=== PATIENT | female | born 1930 | race Caucasian/White ===

== ENCOUNTER 2016-11-29 03:48 | Inpatient (IN) | payer OTHER ==
--- NOTE | 2016-11-29 04:17 | EDPRACDOC ---
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 Mode Of Arrival: Ambulance Home Medications: Home Medications Atorvastatin [Lipitor 40 mg Tablet] 80 mg PO QHS 02/06/15 Carvedilol [Coreg] 6.25 mg PO BID 02/06/15 Clopidogrel Bisulfate [Plavix] 75 mg PO DAILY 02/06/15 Cyanocobalamin (Vitamin B-12) [Vitamin B-12] 500 mcg PO DAILY 02/06/15 Folic Acid 0.8 mg PO DAILY 02/06/15 Furosemide [Lasix] 60 mg PO DAILY 02/06/15 Gabapentin [Neurontin] 300 mg PO QAM 02/06/15 Vitamins, Multiple [Unicap] 1 cap PO DAILY 02/06/15 Citalopram (anti-depressant) [Celexa] 40 mg PO DAILY 04/17/15 Calcium Carbonate/Vitamin D3 [Calcium + Vit D Caplet (600mg/400IU)] 1 tab PO BID 11/29/15 Pantoprazole Sodium [Protonix] 40 mg PO QAM 11/29/15 Beta-Carotene(A) W-C & E/Min [Ocuvite Tablet (1000IU/200mg/60IU)] 2 tab PO DAILY 08/29/16 Gabapentin 600 mg PO QHS 08/29/16 Ubidecarenone [Coq-10] 100 mg PO BID 08/29/16 Allergies/Adverse Reactions: Allergies Allergy/AdvReac Type Severity Reaction Status Date / Time adhesive tape Allergy Unknown/See Verified 11/29/15 11:34 Comments STERI STRIPS Allergy Blisters Uncoded 11/29/15 11:34 - History of Present Illness Onset: 0300 HPI: ABRUPT ONSET OF SHORTNESS OF BREATH. PT WAS AT BASELINE WHEN SHE WENT TO BED. Shortness of Breath: Severe Cough: Reports: Non-productive Rhinorrhea: Reports: Clear SOB Worsens with: Reports: Nothing SOB Improves with: Reports: Nothing Associated Signs and symptoms: Reports: Nasal Symptoms Other History: SHOB RAPIDLY PROGRESSING, "IM TIRED" PT UNABLE TO PROVIDE MUCH INFORMATION. ED Past Medical History - History Reviewed Yes Nurses notes reviewed and agree except as marked Information Unobtainable: Yes Unable to obtain information due to patient condition (ALL INFO FROM DAUGHTER AND MED RECORDS) - Patient Medical History Cardiac History: Reports: Hypertension, Congestive Heart Failure, Hypercholesterolemia Psychological History: Denies: Depression Systemic History: Reports: Cancer (LEFT BREAST CERVICAL LYMPHOMA SKIN CANCER) , Diabetes (controlled with diet) - Social Medical History Smoking Status: Never smoker - Physical Exam Constitutional: Alert, Confused, Distress, Restless. negative: Well nourished, Well appearing Oriented to: Person Last recorded Vital Signs: Oxygen Pulse Oxygen Saturation O2 Device Oxygen Flow Rate Fraction of Inspired Oxygen ( FIO2) - HEENT Head: Normal Oropharynx: Normal Neck: Normal. negative: Edema, Limited ROM, Lymphadenopathy, Meningeal Signs - Respiratory/Cardiovascular Respiratory: Accessory Muscle Use, Rales, Rhonchi, Tachypnea Cardiovascular: Tachycardia - GI Auscultation: Normal Palpation: Normal Tenderness: Non tender - Musculoskeletal Back: Normal. negative: CVA Tenderness Extremities: negative: Pedal Edema - Integumentary Skin: Cool, Clammy - Neurologic Memory Impaired: Short-term, Long-term Motor Function: Other (MOVES ALL EXT) Mood Description: Anxious ED SOB MDM - Re-evaluation Re-evaluation 1 Re-evaluation Time: 04:29 (IMPROVED ON BIPAP) Re-evaluation 3 Re-evaluation Time: 04:58 (SBP 149, PT MUCH IMPROVED, STILL ON BIPAP) - Results Result Diagrams: 11/29/16 04:16 11/29/16 04:16 - EKG EKG #1 EKG Time: 03:59 -: Yes EKG interpreted by me Rate: bpm: 116 [place]: Normal Rhythm: Paced Block: None (WIDE COMPLEX) Hypertrophy: None ST: Nonsp EKG #3 EKG Time: 04:58 ED Critical Care Note - Critical Care Note Total Time (mins): 35 Comments: Due to the presence of and / or the risk of deterioration, my attendance to this patient required critical care time, including assessment/reassessment, documentation, ordering and interpreting ancillary studies, discussion with ED staff and consultants,patient and family, and excludes time spent on separately billable procedures. - Departure Disposition: Admit IP To This Hospital Final Diagnosis: Hypertensive emergency, Pulmonary edema cardiac cause Instructions: Chronic Hypertension (ED) Referrals: None,No Provider [Primary Care Provider] - One Week Decision to Admit Time: 04:59 Decision to admit date: 11/29/16 Decision to admit: from ED - Physician Consulted Hospitalist Time Called: 04:59 Provider Called: Nicanor Whitaker Time Patient Registration Supervisor Returned Call: 04:59
[2016-11-29] MEDS ORDERED: FUROSEMIDE 40 MG/4 ML VIAL IV ONE (04:27)
[2016-11-29] MEDS ORDERED: Nitroglycerin D5W 50,000 MCG/250 ML IVBOT IV ONE (04:32)
[2016-11-29 04:33] LABS: AUTOMATED BASOPHIL 0.7 % (0-2); AUTOMATED LYMPH 31.3 % (17-44); AUTOMATED MONOCYTE 8.4 % (3-10); AUTOMATED NEUTROPHIL 57.6 % (45-76); MPV 9.6 fL (7.4-10.4)
[2016-11-29 04:38] LABS: ALLEN'S TEST PASS; BEb 7.6 (+/- 2); TCO2 36.2 MMOL/L (23-27)
[2016-11-29 04:39] LABS: ABG Draw Site Right Brachial
[2016-11-29 04:40] LABS: PARTIAL THROMB. TIME 34.7 SEC (22-35); PT-INR 1.1
[2016-11-29 04:43] LABS: BLOOD UREA NITROGEN 27 MG/DL (7-17); CALCIUM 10.1 MG/DL (8.4-10.2); CALCULATED OSMOLALITY 279 MOs/Kg (270-290); CHLORIDE 92 mEq/L (98-107); CPK TOTAL WITH POSSIBLE MB 39 IU/L (30-134); GLUCOSE 250 MG/DL (70-99); SODIUM LEVEL 138 mEq/L (137-146); TOTAL PROTEIN 7.9 G/DL (6.3-8.2)
--- NOTE | 2016-11-29 04:48 | DIRPT ---
CLINICAL DATA: Acute onset of sepsis. Breathing difficulty. Initial encounter. EXAM: PORTABLE CHEST 1 VIEW COMPARISON: Chest radiograph performed 11/08/2016 FINDINGS: The lungs are well-aerated. Vascular congestion is noted. Increased interstitial markings raise concern for mild interstitial edema, though pneumonia might have a similar appearance, given the patient's presentation. There is no evidence of pleural effusion or pneumothorax. The cardiomediastinal silhouette is borderline normal in size. A pacemaker/AICD is noted overlying the left chest wall, with leads ending overlying the right atrium, right ventricle and coronary sinus. No acute osseous abnormalities are seen. IMPRESSION: Vascular congestion noted. Increased interstitial markings raise concern for mild interstitial edema, though pneumonia might have a similar appearance, given the patient's presentation. Electronically Signed By: Joselito Stauffer M.D. On: 11/29/2016 04:45
[2016-11-29] MEDS ORDERED: Nitroglycerin D5W 50,000 MCG/250 ML IVBOT IV SCH ×2 (05:00→07:00)
--- NOTE | 2016-11-29 05:48 | HISTPHYS ---
- Chief Complaint shortness of breath - History of Present Illness PRIMARY CARE PROVIDER: Dr. Angela Ames HEME/ONC: Dr. Durham HPI: The patient is an 86 yo woman with congestive heart failure (EF 30-35% on 2012 echocardiogram), history of lymphoma and breast cancer, chronic lung disease thought secondary to cancer treatment, who presents with acute shortness of breath. She reports she started having a cough with some shortness of breath about 10 days ago; she went to her primary care doctor's office, was started on a Z pack and prednisone taper, and was found to be hypoxic enough to qualify for home oxygen. She has been using the home oxygen of 2L at night over the last week. She had some shortness of breath when she went to bed last night but it was not severe. She woke up suddenly at around 3 AM with severe shortness of breath, and just could not breathe at all. She was transported to the emergency department. Onset: over 1 week ago but became very severe at 3 am today. Duration: intermittent at first, and now constant. Character: could not get a good breath. Alleviated by: Nothing. Exacerbated by: lying flat and exertion. Associated Symptoms: Coughing that is non-productive. Wheezing. Shortness of breath. No chest pain but does have palpitations. Diaphoresis. No change in weight. No lower extremity edema. Treatments: none at home except usual medications. - Medical History Cardiac History: Reports: Hypertension, Congestive Heart Failure (2012 ECHO: EF 30-35%. ant hypokiesis. Diastolic dys. Mild-Mod MR.), Hypercholesterolemia, Internal Defibrillator, Pacemaker (replaced 11/28/2015 at [place]), Other ( Left carotid endarterectomy.) Respiratory History: Reports: Other (Chronic lung disease due to cancer treatment per patient.) Systemic History: Reports: Cancer (LYMPHOMA, LEFT BREAST, CERVICAL, MELANOMA), Anemia (Receives injections), Diabetes (controlled with diet, Type 2. With peripheral neuropathy.) Neurological History: Reports: Cerebrovascular Accident (mild, 08/2016. Caused visual field deficits.) Psychological History: Denies: Depression 07/16/2012 ECHOCARDIOGRAM: Ejection fraction 30-35% Anterior wall hypokinesis. Relaxation abnormality. Mild to moderate mitral regurgitation. Trace tricuspid regurgitation. Normal pulmonary artery pressure. - Surgical History Reports: Other (L lumpectomy. Polyps removed nose/sinuses. L-CEA. Pacemaker. Melanoma.) - Medictions/Allergies Allergies adhesive tape Allergy (Verified 11/29/16 05:21) Unknown/See Comments BLISTERS WITH STERI STRIPS STERI STRIPS Allergy (Uncoded 11/29/16 05:21) Blisters Current Medication List: Reviewed Home Medications Atorvastatin Calcium 40 mg PO HS 11/29/16 Calcium Carbonate/Vitamin D3 [Calcium + Vit D Tablet (600mg/200IU)] 1 tab PO BID 11/29/16 Carvedilol 3.125 mg PO BID 11/29/16 Citalopram (anti-depressant) [Celexa] 40 mg PO DAILY 11/29/16 Clopidogrel Bisulfate [Plavix] 75 mg PO DAILY 11/29/16 Cyanocobalamin (Vitamin B-12) [Vitamin B-12] 500 mcg PO HS 11/29/16 Folic Acid 1 mg PO DAILY 11/29/16 Furosemide 20 mg PO .PRN PRN 11/29/16 Furosemide 20 mg PO TID 11/29/16 Gabapentin 300 mg PO TID 11/29/16 Loratadine [Alavert] 10 mg PO DAILY 11/29/16 Multivitamin [Multivitamins] 1 each PO DAILY 11/29/16 Mv-Mn/FA/Vit K/Lycop/Lut/Zeaxa [Ocuvite Eye + Multi Tablet] 1 each PO BID [place]-3 Fatty Acids/Fish Oil [Fish Oil 1,000 mg Capsule] 1 each PO BID 11/29/16 Pantoprazole Sodium 40 mg PO DAILY 11/29/16 Potassium Chloride 10 meq PO BID 11/29/16 Ubidecarenone [Co Q-10] 200 mg PO BID 11/29/16 - Family History Reports: Hypertension (Mother), Cancer (Mother: breast cancer. Father: lung cancer (smoker).), Cardiac Disorders ([employer]: [place].) - Social History Smoking Status: Never smoker Social History: Denies: Alcohol Use, Substance Use Disorder - Review of Systems GENERAL: No Fever, chills. Diaphoresis and fatigue/malaise. HEENT: No ear pain or discharge. No nasal discharge or bleeding. No throat pain or swelling. No eye pain or eye redness. RESPIRATORY: Coughing that is non-productive. Wheezing. Shortness of breath. CARDIOVASCULAR: No chest pain but does have palpitations. GI: Chronic constipation. No abdominal pain, nausea, vomiting, diarrhea, or bloody stool. NEUROLOGICAL: No headache or focal weakness. INTEGUMENT: no rashes, itching, or lesions. LYMPHATIC SYSTEM: no lymph node swelling or pain. MUSCULOSKELETAL: no pain or joint swelling. GENITOURINARY: No dysuria or hematuria. ENDOCRINE: No polyuria or polydipsia. HEME: No chronic anemia, bleeding, or easy bruising. - Physical Exam Vital Signs: Initial Vitals Pulse Rate 100 11/29/16 03:50 Respiratory Rate 22 11/29/16 03:50 Blood Pressure 198/109 H 11/29/16 03:50 Pulse Oxygen Saturation 94 11/29/16 03:50 Vital Signs - 24 hr 11/29/16 11/29/16 11/29/16 03:50 04:25 04:33 Temperature 99.1 F Pulse Rate 100 Respiratory 22 37 H Rate Blood Pressure 198/109 H Pulse Oxygen 94 92 Saturation 11/29/16 11/29/16 11/29/16 04:40 04:45 04:48 Temperature Pulse Rate 109 107 Respiratory 28 H 26 H 22 Rate Blood Pressure 198/91 H 167/87 Pulse Oxygen 97 96 Saturation 11/29/16 11/29/16 11/29/16 04:56 05:08 05:14 Temperature Pulse Rate 103 99 97 Respiratory 22 26 H 24 Rate Blood Pressure 146/88 134/63 124/55 L Pulse Oxygen 96 94 94 Saturation Weight: 85.2 kg Height: 5'5" BMI: 31.3 - Other Exam Other Exam Findings: GENERAL: Ill-appearing, well nourished, in acute distress. HEENT: Normocephalic, atraumatic; pupils equal and round. Nares patent, without discharge or bleeding. No oropharyngeal lesions or erythema. Mucous membranes are dry. NECK: is supple, no masses, trachea midline. RESPIRATORY: Clear to auscultation bilaterally. Chest wall movements are symmetric. Tachypnea and use of accessory muscles to breathe. No wheezing. Bilateral rales. Scattered rhonchi. CARDIOVASCULAR: Normal S1, S2. Murmur 2/6 systolic. No rubs, or gallops. PMI non -displaced. Carotids: no carotid bruits. Tachycardia. DP pulses 2+ bilaterally. Positive for JVD. GI: soft, non-distended, normal active bowel sounds. No hepatosplenomegaly. Mild generalized tenderness. INTEGUMENT: Clean, dry, and intact. No rashes. Nodule 2 cm diameter, erythematous, firm, with central scar, on lateral left lower leg (per family unchanged). MUSCULOSKELETAL: Moving all extremities. No cyanosis. No clubbing. Edema: none bilaterally. NEUROLOGICAL: Cranial nerves 2-12 grossly intact. Motor 4-/5 throughout upper extremities and 3-4/5 in lower extremities, symmetric. Reflexes: 2+ bilaterally. Babinski: toes downgoing bilaterally. Intact Finger to nose. Sensory grossly intact to light touch. Intact rapid alternating movements bilaterally. No pronator drift. PSYCHIATRIC: Fully oriented. Normal and appropriate affect. LYMPHATIC: No cervical lymphadenopathy. No supraclavicular lymphadenopathy. - Lab Results Laboratory Results - last 24 hr 11/29/16 11/29/16 11/29/16 04:10 04:16 04:16 WBC RBC Hgb Hct MCV MCH MCHC RDW Plt Count MPV Neut % (Auto) Lymph % (Auto) Tripp % (Auto) Eos % (Auto) Baso % (Auto) Absolute Neuts (auto) Absolute Lymphs (auto) PT INR APTT Puncture Site pH pCO2 pO2 HCO3 Total CO2 Base Excess Vent Mode FiO2 % Specimen Drawn By Sodium 138 Potassium 3.9 Chloride 92 L Carbon Dioxide 34 H Anion Gap 16 BUN 27 H Creatinine 1.30 H Estimated GFR (MDRD) 39 L Glucose 250 H Calculated Osmolality 279 Lactic Acid 2.7 H Calcium 10.1 Total Bilirubin 0.8 AST 33 ALT 35 Alkaline Phosphatase 126 Creatine Kinase 39 Troponin I 0.02 Tlp-A-Qyltxlzabqe Pept 9400 H Total Protein 7.9 Albumin 4.4 11/29/16 11/29/16 11/29/16 04:16 04:16 04:32 WBC 13.5 H RBC 4.35 Hgb 12.7 Hct 39.4 MCV 91 MCH 29.2 MCHC 32.2 L RDW 16.2 H Plt Count 221 MPV 9.6 Neut % (Auto) 57.6 Lymph % (Auto) 31.3 Tripp % (Auto) 8.4 Eos % (Auto) 2.0 Baso % (Auto) 0.7 Absolute Neuts (auto) 7.70 Absolute Lymphs (auto) 4.19 PT 10.9 INR 1.1 APTT 34.7 Puncture Site Right brachial pH 7.390 pCO2 57.0 H pO2 81.0 HCO3 34.5 H Total CO2 36.2 H Base Excess 7.6 H Vent Mode Bipap 12/6 FiO2 % 40 Specimen Drawn By Rakma Sodium Potassium Chloride Carbon Dioxide Anion Gap BUN Creatinine Estimated GFR (MDRD) Glucose Calculated Osmolality Lactic Acid Calcium Total Bilirubin AST ALT Alkaline Phosphatase Creatine Kinase Troponin I Qyv-S-Ahdimqobakn Pept Total Protein Albumin - Diagnostic Findings EK bpm. Electronic ventricular pacemaker. Reviewed EKG personally. Chest x-ray, viewed personally: EXAM: PORTABLE CHEST 1 VIEW COMPARISON: Chest radiograph performed 11/08/2016 FINDINGS: The lungs are well-aerated. Vascular congestion is noted. Increased interstitial markings raise concern for mild interstitial edema, though pneumonia might have a similar appearance, given the patient's presentation. There is no evidence of pleural effusion or pneumothorax. The cardiomediastinal silhouette is borderline normal in size. A pacemaker/AICD is noted overlying the left chest wall, with leads ending overlying the right atrium, right ventricle and coronary sinus. No acute osseous abnormalities are seen. IMPRESSION: Vascular congestion noted. Increased interstitial markings raise concern for mild interstitial edema, though pneumonia might have a similar appearance, given the patient's presentation. - Assessment (1) Acute on chronic combined systolic and diastolic congestive heart failure I50.43 - ACUTE ON CHRONIC COMBINED SYSTOLIC AND DIASTOLIC HRT FAIL Acute Present on Admission: Yes The patient has both acute and chronic heart failure. Heart failure type: Echocardiogram results from past: Echocardiogram 2011: EF 30-35%. Systolic and diastolic dysfunction. Plan: Admit to ICU with telemetry. CHF order set. Diet of 2 g Na. Daily weights with strict I/O's. No IVF unless patient is NPO. As tolerated, give beta leland, SINGH inhibitor or ARB. Give Lasix IV scheduled. Replace potassium. Monitor heart rate, blood pressure, and respiratory status carefully. Provide support with oxygen as needed. Provide teaching regarding heart failure, 2g Na diet, daily weights, signs of acute heart failure. (2) Acute respiratory failure with hypercapnia J96.02 - ACUTE RESPIRATORY FAILURE WITH HYPERCAPNIA Acute Present on Admission: Yes Patient has dyspnea and is not improving. Patient's PCO2 is elevated. Plan: Place patient on oxygen by BiPAP and increase as needed. Monitor oxygen saturation levels and keep O2 sats greater than 92%. (3) Hypertensive emergency I16.1 - HYPERTENSIVE EMERGENCY Acute Present on Admission: Yes IV Nitro gtt (4) Leukocytosis D72.829 - ELEVATED WHITE BLOOD CELL COUNT, UNSPECIFIED Acute Present on Admission: Yes Mild. Plan: Cultures ordered. Monitor for signs of infection. - Plan In summary, this patient is acutely and critically ill. The patient requires treatment of vital organ failure and measures to prevent further life- threatening deterioration of condition. I have spent 60 min in the critical care of this patient. Case Care Discussed with: Patient, Family, Nursing Staff Total Time: 60 min Critical Care: Yes Code: 291
[2016-11-29] MEDS ORDERED: SENNA CONCENTRATE TAB PO PRN (07:32)
[2016-11-29] MEDS ORDERED: TEMAZEPAM 15 MG CAP PO PRN (07:32)
[2016-11-29] MEDS ORDERED: ACETAMINOPHEN 325 MG SUPP PR PRN (07:32)
[2016-11-29] MEDS ORDERED: MORPHINE 2 MG/ML INJECTION IV PRN (07:32)
[2016-11-29] MEDS ORDERED: Docusate Sodium 100 MG CAP PO PRN (07:32)
[2016-11-29] MEDS ORDERED: ONDANSETRON HCL 4 MG/2 ML VIAL IV PRN (07:32)
[2016-11-29] MEDS ORDERED: PROMETHAZINE 25 MG/ML VIAL IV PRN (07:32)
[2016-11-29] MEDS ORDERED: BENZONATATE 100 MG PERLES PO PRN (07:32)
[2016-11-29] MEDS ORDERED: ACETAMINOPHEN 325 MG/TAB TABLET PO PRN (07:32)
[2016-11-29] MEDS ORDERED: SIMETHICONE 80 MG TAB PO PRN (07:32)
[2016-11-29] MEDS ORDERED: NITROGLYCERINE 0.4 MG TAB SL PRN (07:32)
[2016-11-29] MEDS ORDERED: BISACODYL 5 MG TAB PO PRN (07:32)
[2016-11-29] MEDS ORDERED: GUAIFEN 100 MG-DEXTROMETH 10 MG PER 5 ML PO PRN (07:32)
[2016-11-29] MEDS ORDERED: Magnesium Sulfate 2 gm/D5W 2 GM/50 ML RTU IV PRN (07:37)
[2016-11-29] MEDS ORDERED: Pharmacy Order Set Alert SCH (08:00)
--- NOTE | 2016-11-29 08:03 | GENMEDPROG ---
Chief Complaint: Respiratory failure Subjective Note: Patient admitted overnight with respiratory failure likely combination of CHF, pneumonia. Currently resting comfortably on BiPAP. Daughter is in the room. Denies any chest pain or significant shortness of breath. She was given a dose of IV Lasix in the emergency department, has yet to have any significant output. Notes Reviewed: Yes Events from last night noted and discussed with Clinical Staff Current Medication List: Reviewed Currently: Reports: Cough, Wheezing, BRITO, SOB DVT Prophylaxis: Yes - Physical Examination Vital Signs and I&O: Last Vital Signs Temp 99.1 F 11/29/16 04:33 Pulse 98 11/29/16 06:52 Resp 24 11/29/16 06:52 BP 172/95 11/29/16 06:52 Pulse Ox 98 11/29/16 06:52 Oxygen Pulse Oxygen Saturation 98 O2 Device BiPAP Oxygen Flow Rate Fraction of Inspired Oxygen ( 35 FIO2) Intake & Output 11/27/16 11/28/16 11/29/16 11/30/16 06:59 06:59 06:59 06:59 Intake Total 1 Balance 1 Patient's weight 85.275 kg General: Alert, Oriented x3, Mild distress HEENT: EOMI (Sclera white) Neck: Normal Trachea alignment, Normal inspection Respiratory: Accessory Muscle Use, Rales, Rhonchi Cardiovascular: Regular rate, No Gallops,Rubs/Murmurs GI: Normal bowel sounds, Soft, Non tender (non distended) Extremities/Musculoskeletal: Other (Normal Tone). negative: Edema, Cyanosis Neurological: Cranial Nerves (II-XII intact) Lab/DI/Studies Reviewed: Laboratory Tests 11/29/16 11/29/16 04:16 04:16 WBC 13.5 H Hgb 12.7 Potassium 3.9 BUN 27 H Creatinine 1.30 H - Assessment (1) Acute on chronic combined systolic and diastolic congestive heart failure Acute I50.43 - ACUTE ON CHRONIC COMBINED SYSTOLIC AND DIASTOLIC HRT FAIL Comment/Plan: The patient has both acute and chronic heart failure. Heart failure type: Echocardiogram results from past: Echocardiogram 2011: EF 30-35%. Systolic and diastolic dysfunction. Plan: Admit to ICU with telemetry. CHF order set. Diet of 2 g Na. Daily weights with strict I/O's. No IVF unless patient is NPO. As tolerated, give beta leland, SINGH inhibitor or ARB. Give Lasix IV scheduled. Replace potassium. Monitor heart rate, blood pressure, and respiratory status carefully. Provide support with oxygen as needed. Provide teaching regarding heart failure, 2g Na diet, daily weights, signs of acute heart failure. (2) Acute respiratory failure with hypercapnia Acute J96.02 - ACUTE RESPIRATORY FAILURE WITH HYPERCAPNIA Comment/Plan: Patient has dyspnea and is not improving. Patient's PCO2 is elevated. Plan: Patient has been placed on BiPAP and is now breathing much more comfortably, with acceptable saturations. Monitor oxygen saturation levels and keep O2 sats greater than 92%. (3) Hypertensive emergency Acute I16.1 - HYPERTENSIVE EMERGENCY Comment/Plan: Patient was started on IV nitrate drip, after admission to the intensive care unit, her blood pressures have improved and nitrate drip has been discontinued. (4) Leukocytosis Acute D72.829 - ELEVATED WHITE BLOOD CELL COUNT, UNSPECIFIED Comment/Plan: Mild. Plan: Cultures ordered. Monitor for signs of infection. (5) Pulmonary edema cardiac cause Acute I50.1 - LEFT VENTRICULAR FAILURE - Plan In summary this patient is acutely and critically ill. The patient requires treatment of vital organ failure and measures to prevent further life- threatening deterioration of the above conditions. I personally reviewed and ordered lab testing, as well as imaging. I reviewed old medical records from previous hospitalizations as available, and spent the time mentioned below in critical care of this patient including counseling and coordination of care. Total Time: 32
[2016-11-29] MEDS ORDERED: [UNRECOGNIZED DRUG - OTHER] PO SCH (09:00)
[2016-11-29] MEDS ORDERED: VITAMINS, MULTIPLE CAP PO SCH (09:00)
[2016-11-29] MEDS ORDERED: UBIDECARENONE 200 MG PO SCH (09:00)
[2016-11-29] MEDS ORDERED: Vaccine Screening Complete SCH (09:00)
[2016-11-29] MEDS ORDERED: CALCIUM CARBONATE PO SCH (09:00)
[2016-11-29] MEDS ORDERED: Non-Formulary Medication ITEM (Potassium Chloride [Potassium Chloride] 10 MEQ) PO SCH (09:00)
[2016-11-29] MEDS ORDERED: Magnesium Sulfate 2 gm/D5W 2 GM/50 ML RTU IV ONE (09:00)
[2016-11-29] MEDS ORDERED: [UNRECOGNIZED DRUG - OTHER] PO SCH (09:00)
[2016-11-29] MEDS ORDERED: VITAMIN D3 PO SCH (09:00)
[2016-11-29 09:10] LABS: LEUKOCYTES/URINE TRACE (NEGATIVE); NITRITE/URINE NEG (NEGATIVE); RBC/URINE 0-2 (0-5); URINE OCCULT BLOOD NEG (NEG/TRACE)
[2016-11-29] MEDS: CEFTRIAXONE 1 GM in D5W 100 ML IV SCH (10:39)
[2016-11-29] MEDS: GABAPENTIN 300 MG CAP PO SCH ×3 (10:49→20:52)
[2016-11-29] MEDS: PANTOPRAZOLE 40 MG TAB PO SCH (10:49)
[2016-11-29] MEDS: Aspirin (Orange Enteric Coated) 325 mg tab PO SCH (10:49)
[2016-11-29] MEDS: OMEGA-3-ACID ETHYL ESTERS 1000 MG CAP PO SCH ×2 (10:50→20:52)
[2016-11-29] MEDS: CLOPIDOGREL 75 MG TAB PO SCH (10:50)
[2016-11-29] MEDS: Loratadine 10 MG TAB PO SCH (10:50)
[2016-11-29] MEDS: LISINOPRIL 5 MG TAB PO SCH (10:50)
[2016-11-29] MEDS: CARVEDILOL 3.125 MG TAB PO SCH ×2 (10:50→20:52)
[2016-11-29] MEDS: AZITHROMYCIN 500 MG in D5W 250 ML IV SCH (11:54)
[2016-11-29] MEDS: POTASSIUM CHLORIDE 10 MEQ TABLET PO SCH ×2 (11:59→17:24)
[2016-11-29] MEDS: VITAMINS, MULTIPLE CAP PO SCH ×2 (11:59→17:24)
[2016-11-29] MEDS: FOLIC ACID 1 MG TAB PO SCH (12:00)
[2016-11-29] MEDS: CALCIUM CARBONATE + VITAMIN D 500 MG TAB PO SCH ×2 (12:00→17:24)
[2016-11-29] MEDS: FUROSEMIDE 40 MG/4 ML VIAL IV SCH ×2 (14:29→20:52)
[2016-11-29] MEDS: ENOXAPARIN 40 MG/0.4 ML PFS SQ SCH (17:24)
[2016-11-29] MEDS: ATORVASTATIN 40 MG TAB PO SCH (20:52)
[2016-11-29] MEDS: LORAZEPAM 2 MG/ML VIAL IV PRN (20:52)
[2016-11-29] MEDS: CYANOCOBALAMIN (Vitamin B-12) 500 MCG TABLET PO SCH (20:54)
[2016-11-29] MEDS: CHLORHEXIDINE (HIBICLENS) 4 OZ BOTTLE TOP SCH (23:54)
[2016-11-30] MEDS ORDERED: Vancomycin HCl 0 MG in D5W 500 ML IV SCH (05:00)
[2016-11-30 05:41] LABS: MPV 10.1 fL (7.4-10.4)
[2016-11-30] MEDS: PANTOPRAZOLE 40 MG TAB PO SCH (05:41)
[2016-11-30] MEDS: GABAPENTIN 300 MG CAP PO SCH ×3 (05:41→20:15)
[2016-11-30] MEDS: FUROSEMIDE 40 MG/4 ML VIAL IV SCH ×3 (05:51→20:15)
[2016-11-30 05:55] LABS: BLOOD UREA NITROGEN 26 MG/DL (7-17); CALCIUM 9.8 MG/DL (8.4-10.2); CALCULATED OSMOLALITY 274 MOs/Kg (270-290); CHLORIDE 92 mEq/L (98-107); GLUCOSE 151 MG/DL (70-99); LDL (calc.) 64.8 MG/DL (<100); SODIUM LEVEL 138 mEq/L (137-146); VLDL (calc.) 35.2 MG/DL (5-40)
[2016-11-30] MEDS: CARVEDILOL 3.125 MG TAB PO SCH ×2 (09:44→20:18)
[2016-11-30] MEDS: LISINOPRIL 5 MG TAB PO SCH (09:45)
[2016-11-30] MEDS: Aspirin (Orange Enteric Coated) 325 mg tab PO SCH (10:04)
[2016-11-30] MEDS: CLOPIDOGREL 75 MG TAB PO SCH (10:04)
[2016-11-30] MEDS: OMEGA-3-ACID ETHYL ESTERS 1000 MG CAP PO SCH ×2 (10:04→20:17)
[2016-11-30] MEDS: Loratadine 10 MG TAB PO SCH (10:04)
[2016-11-30] MEDS: CEFTRIAXONE 1 GM in D5W 100 ML IV SCH (10:04)
--- NOTE | 2016-11-30 11:14 | GENMEDPROG ---
Chief Complaint: CHF EXAC, ACUTE RESP FAILURE, HCVD, Currently: Reports: Cough, Wheezing, BRITO, SOB DVT Prophylaxis: Yes - Physical Examination Vital Signs and I&O: Last Vital Signs Temp 97.6 F 11/30/16 10:00 Pulse 84 11/30/16 10:00 Resp 18 11/30/16 10:00 BP 111/53 L 11/30/16 10:00 Pulse Ox 100 11/30/16 10:00 Oxygen Pulse Oxygen Saturation 100 O2 Device Nasal Cannula Oxygen Flow Rate 2 Fraction of Inspired Oxygen ( 35 FIO2) Intake & Output 11/27/16 11/28/16 11/29/16 11/30/16 23:59 23:59 23:59 23:59 Intake Total 1598 480 Output Total 1700 950 Balance -102 -470 Patient's weight 85.275 kg General: Alert, Oriented x3, Mild distress HEENT: EOMI (Sclera white) Neck: Normal Trachea alignment, Normal inspection Lymphatics: Normal Respiratory: Accessory Muscle Use, Rales, Rhonchi Cardiovascular: Regular rate, No Gallops,Rubs/Murmurs GI: Normal bowel sounds, Soft, Non tender (non distended) Extremities/Musculoskeletal: Other (Normal Tone). negative: Edema, Cyanosis Neurological: Normal speech, Normal tone, Cranial Nerves (II-XII intact) Psych/Mental Status: Appropriate, Normal Affect, Cooperative Lab/DI/Studies Reviewed: Laboratory Tests 11/30/16 11/30/16 05:03 05:03 WBC 7.4 Hgb 11.3 L D Hct 34.3 L Plt Count 182 Sodium 138 Potassium 3.7 Chloride 92 L Carbon Dioxide 39 H Anion Gap 11 BUN 26 H Creatinine 1.10 H Estimated GFR (MDRD) 47 L Glucose 151 H Calculated Osmolality 274 Calcium 9.8 Magnesium 2.00 Triglycerides 176 H Cholesterol 140 LDL Cholesterol, Calc 64.8 VLDL Cholesterol, Calc 35.2 HDL Cholesterol 40.0 Cholesterol/HDL Ratio 3.5 Echocardiogram: CONCLUSIONS 1. There is mild concentric left ventricular hypertrophy. 2. Overall left ventricular systolic function is severely impaired with, an EF between 20 - 25 %. 3. The diastolic filling pattern indicates impaired relaxation. 4. The left atrium is normal in size. 5. Sfet-xr-wrlsogez mitral regurgitation is present. 6. Trace tricuspid regurgitation present. Electronically Signed By: Archie Sr MD -- Electronically Signed On: 17:07:31 Copy to: Sonu Garcia MD~ 11/30/16 5815 - Assessment (1) Acute on chronic combined systolic and diastolic congestive heart failure Chronic I50.43 - ACUTE ON CHRONIC COMBINED SYSTOLIC AND DIASTOLIC HRT FAIL Comment/Plan: The patient has both acute and chronic heart failure. Heart failure type: Echocardiogram results from past: Echocardiogram 2011: EF 30-35%. Systolic and diastolic dysfunction. Current echo shows LVEF of 20-25%. Give Lasix IV scheduled. Replace potassium. Monitor heart rate, blood pressure, and respiratory status carefully. (2) Bacteremia due to Gram-positive bacteria Acute A49.9 - BACTERIAL INFECTION, UNSPECIFIED Comment/Plan: Both aerobic and anaerobic bottles are + for GPC (in clusters) probable Staph species. Patient is on vancomycin. (3) Acute respiratory failure with hypercapnia Acute J96.02 - ACUTE RESPIRATORY FAILURE WITH HYPERCAPNIA Comment/Plan: Patient has been able to wean down to 2L NC. Monitor oxygen saturation levels and keep O2 sats greater than 92%. (4) Pulmonary edema cardiac cause Acute I50.1 - LEFT VENTRICULAR FAILURE Comment/Plan: LVEF=20-25% severely impaired. (5) Hypertensive emergency Acute I16.1 - HYPERTENSIVE EMERGENCY Comment/Plan: Currently on Coreg and lisinopril to control BP. BP =145/74 (6) Leukocytosis Resolved D72.829 - ELEVATED WHITE BLOOD CELL COUNT, UNSPECIFIED Comment/Plan : Resolved
[2016-11-30] MEDS: AZITHROMYCIN 500 MG in D5W 250 ML IV SCH (11:27)
--- NOTE | 2016-11-30 12:23 | PCM.CARDCO ---
Consultation Date: 11/30/16 Requesting Physician: Vida Obando Fleet Manager/Dispatch: Archie Sr Consult Reason: CHF - History of Present Illness Patient is an 86 years old woman that I know from office visit she does have history of cardiomyopathy with a latest estimation of left ventricle ejection fraction done in 2011 showing 30%. She also does have a pacemaker as well as diabetes apparently for last few weeks she has being getting worse from respiratory point of view. She visited her primary care physician. Antibiotic was given in form of Zithromax with some questionable improvement. She also gained few lb. Eventually I had the day of the admission she woke up in the middle of the night gasping for her she was brought to the emergency room she was fine to have decompensated congestive heart failure as well as some questionable pneumonia both I managed appropriately I was asked by the family to see the patient to make sure everything is fine from cardiac standpoint of view. At the moment of my interview lady sitting in the chair eating her lunch. Denies having shortness of breath tightness squeezing pressure burning in her chest. Denies having any swelling of lower extremities Chief Complaint: shortness of breath - Past Medical and Surgical History Cardiac History: Reports: Hypertension, Congestive Heart Failure, Pacemaker Respiratory History: Reports: Bronchitis Systemic History: Reports: Diabetes Psychological History: Denies: Substance Use Disorder Allergies adhesive tape Allergy (Verified 11/29/16 05:21) Unknown/See Comments BLISTERS WITH STERI STRIPS STERI STRIPS Allergy (Uncoded 11/29/16 05:21) Blisters Home Medications Atorvastatin Calcium 40 mg PO HS 11/29/16 Calcium Carbonate/Vitamin D3 [Calcium + Vit D Tablet (600mg/200IU)] 1 tab PO BID 11/29/16 Carvedilol 3.125 mg PO BID 11/29/16 Citalopram (anti-depressant) [Celexa] 40 mg PO DAILY 11/29/16 Clopidogrel Bisulfate [Plavix] 75 mg PO DAILY 11/29/16 Cyanocobalamin (Vitamin B-12) [Vitamin B-12] 500 mcg PO HS 11/29/16 Folic Acid 1 mg PO DAILY 11/29/16 Furosemide 60 mg PO TID 11/29/16 Gabapentin 300 mg PO QAM 11/29/16 Gabapentin 600 mg PO QHS 11/29/16 Loratadine [Alavert] 10 mg PO DAILY 11/29/16 Multivitamin [Multivitamins] 1 each PO DAILY 11/29/16 Mv-Mn/FA/Vit K/Lycop/Lut/Zeaxa [Ocuvite Eye + Multi Tablet] 1 each PO BID [place]-3 Fatty Acids/Fish Oil [Fish Oil 1,000 mg Capsule] 1 each PO BID 11/29/16 Pantoprazole Sodium 40 mg PO DAILY 11/29/16 Potassium Chloride 10 meq PO BID 11/29/16 Ubidecarenone [Co Q-10] 200 mg PO BID 11/29/16 - Social History Social History: Denies: Substance Use Disorder - Family History Reports: Hypertension (Mother), Cancer (Mother: breast cancer. Father: lung cancer (smoker).), Cardiac Disorders (MGM: [place].) Negative except as described per history of present illness - Physical Exam Constitutional: Alert, Confused, Distress, Restless. negative: Well nourished, Well appearing Oriented to: Person Exam: Last Vital Signs Temp 97.6 F 11/30/16 10:00 Pulse 87 11/30/16 12:00 Resp 18 11/30/16 10:00 BP 111/53 L 11/30/16 10:00 Pulse Ox 100 11/30/16 10:00 Intake & Output 11/29/16 11/30/16 11/30/16 23:59 07:59 15:59 Intake Total 822 120 360 Output Total 200 450 500 Balance 622 -330 -140 - HEENT Head: Normal Oropharynx: Normal - Respiratory/Cardiovascular Respiratory: Accessory Muscle Use, Rales, Rhonchi - GI Auscultation: Normal Palpation: Normal Tenderness: Non tender - Musculoskeletal Back: Normal. negative: CVA Tenderness Extremities: negative: Pedal Edema - Integumentary Skin: Cool, Clammy - Neurologic Memory Impaired: Short-term, Long-term Mood Description: Anxious - Other Exam Other Exam Findings: General Appearance: Well developed. Well nourished. In no acute distress. Lungs: Chest was not overinflated. Poor air entry bilaterally with few crackles both bases. Cardiovascular: Jugular Venous Distention: JVD is still increase even when she is sitting upright seeing especially the right side Heart Rate And Rhythm: Normal. Heart Sounds: Normal. Murmurs: Soft systolic murmur grade 1-2/6 best heard left border of the sternum. Carotid Arteries: Carotid pulses were normal. No bruit in the carotid artery. Edema: Not present. Lower extremities pulses normal (including femoral popliteal and dorsalis pedis) . Musculoskeletal System: General/bilateral: No cyanosis of the fingers. Neurological: Oriented to time, place, and person. Nails: No clubbing of the fingernails. - Lab Results Laboratory Tests 11/29/16 11/29/16 11/29/16 04:10 04:16 04:16 WBC RBC Hgb Hct MCV MCH MCHC RDW Plt Count MPV Neut % (Auto) Lymph % (Auto) Owen % (Auto) Eos % (Auto) Baso % (Auto) Absolute Neuts (auto) Absolute Lymphs (auto) PT INR APTT Puncture Site pH pCO2 pO2 HCO3 Total CO2 Base Excess Vent Mode FiO2 % Specimen Drawn By Sodium 138 Potassium 3.9 Chloride 92 L Carbon Dioxide 34 H Anion Gap 16 BUN 27 H Creatinine 1.30 H Estimated GFR (MDRD) 39 L Glucose 250 H Calculated Osmolality 279 Lactic Acid 2.7 H Calcium 10.1 Magnesium Total Bilirubin 0.8 AST 33 ALT 35 Alkaline Phosphatase 126 Creatine Kinase 39 Total Creatine Kinase Troponin I 0.02 Blq-U-Lavceecskxl Pept 9400 H Total Protein 7.9 Albumin 4.4 Triglycerides Cholesterol LDL Cholesterol, Calc VLDL Cholesterol, Calc HDL Cholesterol Cholesterol/HDL Ratio Urine Color Urine Clarity Urine pH Ur Specific [place] Urine Protein Urine Glucose (UA) Urine Ketones Urine Occult Blood Urine Nitrite Urine Bilirubin Urine Urobilinogen Ur Leukocyte Esterase Urine RBC Urine WBC Ur Epithelial Cells Urine Bacteria Hyaline Casts Urine Mucus 11/29/16 11/29/16 11/29/16 04:16 04:16 04:32 WBC 13.5 H RBC 4.35 Hgb 12.7 Hct 39.4 MCV 91 MCH 29.2 MCHC 32.2 L RDW 16.2 H Plt Count 221 MPV 9.6 Neut % (Auto) 57.6 Lymph % (Auto) 31.3 Owen % (Auto) 8.4 Eos % (Auto) 2.0 Baso % (Auto) 0.7 Absolute Neuts (auto) 7.70 Absolute Lymphs (auto) 4.19 PT 10.9 INR 1.1 APTT 34.7 Puncture Site Right brachial pH 7.390 pCO2 57.0 H pO2 81.0 HCO3 34.5 H Total CO2 36.2 H Base Excess 7.6 H Vent Mode Bipap 11/05 FiO2 % 40 Specimen Drawn By Rakma Sodium Potassium Chloride Carbon Dioxide Anion Gap BUN Creatinine Estimated GFR (MDRD) Glucose Calculated Osmolality Lactic Acid Calcium Magnesium Total Bilirubin AST ALT Alkaline Phosphatase Creatine Kinase Total Creatine Kinase Troponin I Tqr-I-Scozbfhxukr Pept Total Protein Albumin Triglycerides Cholesterol LDL Cholesterol, Calc VLDL Cholesterol, Calc HDL Cholesterol Cholesterol/HDL Ratio Urine Color Urine Clarity Urine pH Ur Specific [place] Urine Protein Urine Glucose (UA) Urine Ketones Urine Occult Blood Urine Nitrite Urine Bilirubin Urine Urobilinogen Ur Leukocyte Esterase Urine RBC Urine WBC Ur Epithelial Cells Urine Bacteria Hyaline Casts Urine Mucus 11/29/16 11/29/16 11/29/16 06:50 06:50 08:20 WBC RBC Hgb Hct MCV MCH MCHC RDW Plt Count MPV Neut % (Auto) Lymph % (Auto) Owen % (Auto) Eos % (Auto) Baso % (Auto) Absolute Neuts (auto) Absolute Lymphs (auto) PT INR APTT Puncture Site pH pCO2 pO2 HCO3 Total CO2 Base Excess Vent Mode FiO2 % Specimen Drawn By Sodium Potassium Chloride Carbon Dioxide Anion Gap BUN Creatinine Estimated GFR (MDRD) Glucose Calculated Osmolality Lactic Acid Calcium Magnesium 1.80 Total Bilirubin AST ALT Alkaline Phosphatase Creatine Kinase Total Creatine Kinase Troponin I 0.07 Eod-I-Rrkxecehuos Pept Total Protein Albumin Triglycerides Cholesterol LDL Cholesterol, Calc VLDL Cholesterol, Calc HDL Cholesterol Cholesterol/HDL Ratio Urine Color Yellow Urine Clarity Sl cldy Urine pH 6.0 Ur Specific [place] 1.005 Urine Protein Neg Urine Glucose (UA) Neg Urine Ketones Neg Urine Occult Blood Neg Urine Nitrite Neg Urine Bilirubin Neg Urine Urobilinogen <2.0 Ur Leukocyte Esterase Trace H Urine RBC 0-2 Urine WBC 2-5 Ur Epithelial Cells 1+ Urine Bacteria 1+ H Hyaline Casts 0-2 Urine Mucus Occ 11/29/16 11/29/16 11/29/16 09:15 09:15 15:10 WBC RBC Hgb Hct MCV MCH MCHC RDW Plt Count MPV Neut % (Auto) Lymph % (Auto) Owen % (Auto) Eos % (Auto) Baso % (Auto) Absolute Neuts (auto) Absolute Lymphs (auto) PT INR APTT Puncture Site pH pCO2 pO2 HCO3 Total CO2 Base Excess Vent Mode FiO2 % Specimen Drawn By Sodium Potassium 3.7 Chloride Carbon Dioxide Anion Gap BUN Creatinine Estimated GFR (MDRD) Glucose Calculated Osmolality Lactic Acid 1.6 Calcium Magnesium Total Bilirubin AST ALT Alkaline Phosphatase Creatine Kinase Total Creatine Kinase 34 Troponin I 0.09 Pwj-D-Pggfnkivzvq Pept Total Protein Albumin Triglycerides Cholesterol LDL Cholesterol, Calc VLDL Cholesterol, Calc HDL Cholesterol Cholesterol/HDL Ratio Urine Color Urine Clarity Urine pH Ur Specific [place] Urine Protein Urine Glucose (UA) Urine Ketones Urine Occult Blood Urine Nitrite Urine Bilirubin Urine Urobilinogen Ur Leukocyte Esterase Urine RBC Urine WBC Ur Epithelial Cells Urine Bacteria Hyaline Casts Urine Mucus 11/30/16 11/30/16 05:03 05:03 WBC 7.4 RBC 3.79 L Hgb 11.3 L D Hct 34.3 L MCV 91 MCH 29.8 MCHC 32.9 L RDW 15.8 H Plt Count 182 MPV 10.1 Neut % (Auto) Lymph % (Auto) Owen % (Auto) Eos % (Auto) Baso % (Auto) Absolute Neuts (auto) Absolute Lymphs (auto) PT INR APTT Puncture Site pH pCO2 pO2 HCO3 Total CO2 Base Excess Vent Mode FiO2 % Specimen Drawn By Sodium 138 Potassium 3.7 Chloride 92 L Carbon Dioxide 39 H Anion Gap 11 BUN 26 H Creatinine 1.10 H Estimated GFR (MDRD) 47 L Glucose 151 H Calculated Osmolality 274 Lactic Acid Calcium 9.8 Magnesium 2.00 Total Bilirubin AST ALT Alkaline Phosphatase Creatine Kinase Total Creatine Kinase Troponin I Nmy-T-Umjonnriphy Pept Total Protein Albumin Triglycerides 176 H Cholesterol 140 LDL Cholesterol, Calc 64.8 VLDL Cholesterol, Calc 35.2 HDL Cholesterol 40.0 Cholesterol/HDL Ratio 3.5 Urine Color Urine Clarity Urine pH Ur Specific [place] Urine Protein Urine Glucose (UA) Urine Ketones Urine Occult Blood Urine Nitrite Urine Bilirubin Urine Urobilinogen Ur Leukocyte Esterase Urine RBC Urine WBC Ur Epithelial Cells Urine Bacteria Hyaline Casts Urine Mucus - Diagnostic Findings Electrocardiogram showed normal sinus rhythm, paced rhythm. - Assessment/Plan (1) Acute on chronic combined systolic and diastolic congestive heart failure I50.43 - ACUTE ON CHRONIC COMBINED SYSTOLIC AND DIASTOLIC HRT FAIL Chronic Present on Admission: Yes Comment: I will ask her to have an echocardiogram done to check left ventricle ejection fraction apparently last documentation of her left ventricle ejection fraction is from 2011 when she had echocardiogram done in our hospital. However she told me she had seen Dr. Landry about year ago and she was fine to have ejection fraction being normal. Regardless echocardiogram will be done to check on that. She is already on appropriate diuresis which is fine will continue will watch her intake and output. And future recommendation terms of medical management will depend on the results of her echocardiogram. Overall she seems to be improving however have to admit somewhat slowly. (2) Pacemaker Z95.0 - PRESENCE OF CARDIAC PACEMAKER Chronic Present on Admission: Yes Comment: Apparently interrogated recently and function properly. Will try to look at this interrogation. (3) Leukocytosis D72.829 - ELEVATED WHITE BLOOD CELL COUNT, UNSPECIFIED Acute Present on Admission: Yes Comment: On multiple antibiotics which I will continue.
[2016-11-30] MEDS: POTASSIUM CHLORIDE 10 MEQ TABLET PO SCH ×2 (14:38→16:58)
[2016-11-30] MEDS: FOLIC ACID 1 MG TAB PO SCH (14:38)
[2016-11-30] MEDS: VITAMINS, MULTIPLE CAP PO SCH ×2 (14:38→16:58)
[2016-11-30] MEDS: CALCIUM CARBONATE + VITAMIN D 500 MG TAB PO SCH ×2 (14:42→16:58)
[2016-11-30] MEDS: ENOXAPARIN 40 MG/0.4 ML PFS SQ SCH (16:58)
--- NOTE | 2016-11-30 17:08 | CAPUECHO ---
INDICATION: CARDIOMYOPATHY HEIGHT: 165.1 cm (5 ft 5.0 in) WEIGHT: 85.3 kg (188.0 lbs) BP: 138/69 BSA: 1.99440 m MEASUREMENTS 2D IVSd: 1.2 cm LVIDd: 5.1* cm LVPWd: 1.2 cm LVIDs: 4.6 cm EF(Teich): 21.64 % LA Diam: 4.0 cm EF Biplane: 38.89 % LAESV MOD A4C: 65.5 ml LAESV MOD A2C: 118.6 ml LAESV Index (A-L): 52.41 ml/m DOPPLER MV E Brendan: 0.92 m/s MV A Brendan: 1.00 m/s MV PHT: 49.03 ms MVA By PHT: 4.49 cm LVOT Vmax: 0.74 m/s AV Vmax: 1.13 m/s FINDINGS ------- Procedure:2D images, m-mode, color and spectral Doppler were obtained and reviewed. ECG rhythm:Sinus rhythm. Study quality:This was a technically adequate study. Left Ventricle:The left ventricular size is normal. There is mild concentric left ventricular hype rtrophy. Overall left ventricular systolic function is severely impaired with, an EF between 20 - 25 %. The diastolic filling pattern indicates impaired relaxation. Right Ventricle:The right ventricle is normal in size and function. The RV was not well visualized . Pacer wire. Left Atrium:The left atrium is normal in size. Right Atrium:The right atrium is normal in size and function. The right atrium was not well visual ized. Electronic pacemaker lead seen in the right atrial cavity. Aortic Valve:The aortic valve is trileaflet, and appears structurally normal. No aortic stenosis or regurgitation. There is mild aortic valve sclerosis. Mitral Valve:The mitral valve leaflets are moderately thickened. Yypn-zz-bhacfjdk mitral regurgita tion is present. Tricuspid Valve:The tricuspid valve appears structurally normal. Trace tricuspid regurgitation pre sent. Pulmonic Valve:The pulmonic valve is normal. Trace/mild (physiologic) pulmonic regurgitation. Aorta:The aortic root, ascending aorta and aortic arch appear normal. IVC:Normal inferior vena cava with normal inspiratory collapse. Pericardium:There is no pericardial effusion. CONCLUSIONS 1. There is mild concentric left ventricular hypertrophy. 2. Overall left ventricular systolic function is severely impaired with, an EF between 20 - 25 %. 3. The diastolic filling pattern indicates impaired relaxation. 4. The left atrium is normal in size. 5. Qoyw-wv-bjzgeitl mitral regurgitation is present. 6. Trace tricuspid regurgitation present. Electronically Signed By: Archie rS MD -- Electronically Signed On: 17:07:31
[2016-11-30] MEDS: ATORVASTATIN 40 MG TAB PO SCH (20:14)
[2016-11-30] MEDS: CYANOCOBALAMIN (Vitamin B-12) 500 MCG TABLET PO SCH (20:15)
[2016-11-30] MEDS: CHLORHEXIDINE (HIBICLENS) 4 OZ BOTTLE TOP SCH (21:56)
[2016-12-01] MEDS: FUROSEMIDE 40 MG/4 ML VIAL IV SCH ×3 (04:07→21:42)
[2016-12-01] MEDS: PANTOPRAZOLE 40 MG TAB PO SCH (04:07)
[2016-12-01 05:14] LABS: MPV 9.5 fL (7.4-10.4)
[2016-12-01 05:29] LABS: BLOOD UREA NITROGEN 28 MG/DL (7-17); CALCIUM 10.4 MG/DL (8.4-10.2); CALCULATED OSMOLALITY 271 MOs/Kg (270-290); CHLORIDE 90 mEq/L (98-107); GLUCOSE 144 MG/DL (70-99); SODIUM LEVEL 136 mEq/L (137-146)
[2016-12-01] MEDS: CEFTRIAXONE 1 GM in D5W 100 ML IV SCH (08:06)
[2016-12-01] MEDS: CARVEDILOL 3.125 MG TAB PO SCH ×2 (08:06→21:41)
[2016-12-01] MEDS: LISINOPRIL 5 MG TAB PO SCH (08:06)
[2016-12-01] MEDS: Loratadine 10 MG TAB PO SCH (08:07)
[2016-12-01] MEDS: OMEGA-3-ACID ETHYL ESTERS 1000 MG CAP PO SCH ×2 (08:07→21:42)
[2016-12-01] MEDS: VITAMINS, MULTIPLE CAP PO SCH ×2 (08:07→16:46)
[2016-12-01] MEDS: GABAPENTIN 300 MG CAP PO SCH ×2 (08:07→21:42)
[2016-12-01] MEDS: POTASSIUM CHLORIDE 10 MEQ TABLET PO SCH ×2 (08:08→16:46)
[2016-12-01] MEDS: CLOPIDOGREL 75 MG TAB PO SCH (08:08)
[2016-12-01] MEDS: FOLIC ACID 1 MG TAB PO SCH (08:08)
[2016-12-01] MEDS: Aspirin (Orange Enteric Coated) 325 mg tab PO SCH (08:08)
[2016-12-01] MEDS: CALCIUM CARBONATE + VITAMIN D 500 MG TAB PO SCH ×2 (10:54→16:46)
--- NOTE | 2016-12-01 11:47 | GENMEDPROG ---
Chief Complaint: CHF, HCVD, RESP INSUFFIC, PULMONARY EDEMA Currently: Reports: Cough, Wheezing, BRITO, SOB DVT Prophylaxis: Yes - Physical Examination Vital Signs and I&O: Last Vital Signs Temp 98.3 F 12/01/16 08:16 Pulse 85 12/01/16 11:18 Resp 20 12/01/16 08:16 BP 146/72 12/01/16 08:16 Pulse Ox 98 12/01/16 08:16 Oxygen Pulse Oxygen Saturation 98 O2 Device Nasal Cannula Oxygen Flow Rate 2 Fraction of Inspired Oxygen ( 35 FIO2) Intake & Output 11/28/16 11/29/16 11/30/16 12/01/16 23:59 23:59 23:59 23:59 Intake Total 1598 960 460 Output Total 1700 1350 2100 Balance -102 390 -0544 Patient's weight 85.275 kg 85.049 kg 85.139 kg General: Alert, Oriented x3, Mild distress HEENT: PERRLA, EOMI (Sclera white), Anicteric Sclera, Mucous membr. moist/pink Neck: Normal Trachea alignment, Normal inspection Lymphatics: Normal Respiratory: Diminished, Rales Cardiovascular: Regular rate, Normal S1, No Gallops,Rubs/Murmurs, Normal S2. negative: LE Edema GI: Normal bowel sounds, Soft, Non tender (non distended) Extremities/Musculoskeletal: Normal pulses, Other (Normal Tone). negative: Edema, Cyanosis Skin: Warm,Dry and Intact Neurological: Normal speech, Normal tone, Cranial Nerves (II-XII intact) Psych/Mental Status: Appropriate, Normal Affect, Cooperative Lab/DI/Studies Reviewed: Laboratory Tests 11/30/16 12/01/16 12/01/16 05:03 04:50 04:50 WBC 7.4 7.3 Hgb 11.3 L D 11.3 L Hct 34.3 L 34.2 L Plt Count 182 173 Sodium 136 L Potassium 3.6 Chloride 90 L Carbon Dioxide 39 H Anion Gap 11 BUN 28 H Creatinine 1.30 H Estimated GFR (MDRD) 39 L Glucose 144 H Calculated Osmolality 271 Calcium 10.4 H - Assessment (1) Acute on chronic combined systolic and diastolic congestive heart failure Chronic I50.43 - ACUTE ON CHRONIC COMBINED SYSTOLIC AND DIASTOLIC HRT FAIL Comment/Plan: The patient has both acute and chronic heart failure. Heart failure type: Echocardiogram results from past: Echocardiogram 2012: EF 30-35%. Systolic and diastolic dysfunction. Current echo shows LVEF of 20-25%. Give Lasix IV scheduled. Replace potassium. Will need hospital bed at discharge in order to keep head elevated. Monitor heart rate, blood pressure, and respiratory status carefully. (2) Acute respiratory failure with hypercapnia Acute J96.02 - ACUTE RESPIRATORY FAILURE WITH HYPERCAPNIA Comment/Plan: Patient has been able to wean down to 2L NC. Monitor oxygen saturation levels and keep O2 sats greater than 92%. (3) Pulmonary edema cardiac cause Acute I50.1 - LEFT VENTRICULAR FAILURE Comment/Plan: Continue diuresis, LVEF =20-25% severely impaired. Patient is improved. (4) Hypertensive emergency Resolved I16.1 - HYPERTENSIVE EMERGENCY Comment/Plan: Currently on Coreg and lisinopril to control BP. BP =145/74 (5) Leukocytosis Resolved D72.829 - ELEVATED WHITE BLOOD CELL COUNT, UNSPECIFIED Comment/Plan : Resolved (6) Bacteremia due to Gram-positive bacteria Acute A49.9 - BACTERIAL INFECTION, UNSPECIFIED Comment/Plan: Both aerobic and anaerobic bottles are + for GPC (in clusters) probable contaminant (Staph species). Will stop vancomycin. - Plan Anticipate need for hospital bed at home on discharge due to CHF and cardiomyopathy.
[2016-12-01] MEDS: ENOXAPARIN 40 MG/0.4 ML PFS SQ SCH (16:45)
[2016-12-01] MEDS: ATORVASTATIN 40 MG TAB PO SCH (21:41)
[2016-12-01] MEDS: CYANOCOBALAMIN (Vitamin B-12) 500 MCG TABLET PO SCH (21:42)
[2016-12-01] MEDS: LORAZEPAM 2 MG/ML VIAL IV PRN (21:58)
[2016-12-02] MEDS: PANTOPRAZOLE 40 MG TAB PO SCH (04:11)
[2016-12-02] MEDS: FUROSEMIDE 40 MG/4 ML VIAL IV SCH ×3 (04:11→21:05)
[2016-12-02] MEDS: CEFTRIAXONE 1 GM in D5W 100 ML IV SCH (08:29)
[2016-12-02] MEDS: CLOPIDOGREL 75 MG TAB PO SCH (08:29)
[2016-12-02] MEDS: LISINOPRIL 5 MG TAB PO SCH (08:29)
[2016-12-02] MEDS: OMEGA-3-ACID ETHYL ESTERS 1000 MG CAP PO SCH ×2 (08:29→21:05)
[2016-12-02] MEDS: GABAPENTIN 300 MG CAP PO SCH ×2 (08:30→21:05)
[2016-12-02] MEDS: CARVEDILOL 3.125 MG TAB PO SCH ×2 (08:30→21:05)
[2016-12-02] MEDS: Aspirin (Orange Enteric Coated) 325 mg tab PO SCH (08:30)
[2016-12-02] MEDS: Loratadine 10 MG TAB PO SCH (08:30)
--- NOTE | 2016-12-02 09:43 | PCM.CARD ---
- Subjective Reason for visit: f/u decomp acute/chronic comb sys/vanessa CHF Subj: pt reports breathing ok; slept well last night, and most of day today. Cecilio up to chair, hasn't ambulated much Denies pain. LIves with eldest daughter, who is here visiting. Vital Signs: Last Vital Signs Temp 98.5 F 12/02/16 08:50 Pulse 87 12/02/16 08:50 Resp 22 12/02/16 08:50 BP 122/53 L 12/02/16 08:50 Pulse Ox 98 12/02/16 08:50 Intake & Output 11/29/16 11/30/16 12/01/16 12/02/16 23:59 23:59 23:59 23:59 Intake Total 6410 745 6489 60 Output Total 1700 1350 3100 1350 Balance -102 -908 -9790 -1290 Patient's weight 85.275 kg 85.049 kg 85.139 kg 84.867 kg PE: Physical Exam GEN: Overweight, age apporpriate, in NAD. VS: as above HEENT: No JVD seated upright CHEST: essentially clear; decr BS bases COR: RR, normal s1, s2, Gr 1/6 mid sys murmur ABD: no distention EXTREM: no edema SKIN: warm, dry NEURO: alert, no focal deficit or tremor Lab/DI Results Reviewed: Laboratory Tests 11/29/16 11/29/16 11/29/16 04:10 04:16 06:50 WBC Hgb Hct RDW Sodium 138 Potassium 3.9 Chloride 92 L Carbon Dioxide 34 H BUN 27 H Creatinine 1.30 H Estimated GFR (MDRD) 39 L Troponin I 0.02 0.07 Odp-J-Thswygvkujx Pept 9400 H Cholesterol LDL Cholesterol, Calc 11/29/16 11/30/16 09:15 05:03 WBC Hgb Hct RDW Sodium Potassium Chloride Carbon Dioxide BUN Creatinine Estimated GFR (MDRD) Troponin I 0.09 Moz-U-Zkienaeiulm Pept Cholesterol 140 LDL Cholesterol, Calc 64.8 12/01/16 04:50 WBC 7.3 Hgb 11.3 L Hct 34.2 L RDW 16.2 H Sodium Potassium Chloride Carbon Dioxide BUN Creatinine Estimated GFR (MDRD) Troponin I Irx-X-Zhvurhhujjr Pept Cholesterol LDL Cholesterol, Calc Laboratory Tests 1212/01/16 12/01/16 04:10 03:50 04:50 Sodium 136 L Potassium 3.6 Chloride 90 L Carbon Dioxide 39 H BUN 28 H Creatinine 1.30 H Xdu-E-Mazcromezme Pept 9400 H 5200 H Echo yesterday: mild conc LVH, diffuse hypo, EF 20-25% tele: NSR IMPRESSION: modest improvement in acute on chronic combined sys/vanessa CHF CHF refractory, on 60 tid Lasix chronically - Plan PLAN: incr diuretic dosing; touch with spironolactone as adjunct. Keep K+ normal. - guided by serial BNP/BMP determinations, and weight.s
[2016-12-02] MEDS ORDERED: SPIRONOLACTONE 50 MG TAB PO ONE (10:00)
[2016-12-02] MEDS: CALCIUM CARBONATE + VITAMIN D 500 MG TAB PO SCH ×2 (13:27→17:50)
[2016-12-02] MEDS: VITAMINS, MULTIPLE CAP PO SCH ×2 (13:27→17:50)
[2016-12-02] MEDS: FOLIC ACID 1 MG TAB PO SCH (13:28)
[2016-12-02] MEDS: POTASSIUM CHLORIDE 20 MEQ TAB PO SCH ×2 (13:28→17:51)
--- NOTE | 2016-12-02 15:26 | GENMEDPROG ---
Chief Complaint: CHF, resp insuff, HCVD, visually impaired, weakness and debility Subjective Note: patient declined to work with PT today Notes Reviewed: Yes Events from last night noted and discussed with Clinical Staff Current Medication List: Reviewed Currently: Reports: ANAHY BRITO. Denies: Ambulating DVT Prophylaxis: Yes - Physical Examination Vital Signs and I&O: Last Vital Signs Temp 98.1 F 12/02/16 12:42 Pulse 77 12/02/16 14:00 Resp 20 12/02/16 12:42 BP 105/57 L 12/02/16 12:42 Pulse Ox 98 12/02/16 12:42 Oxygen Pulse Oxygen Saturation 98 O2 Device Nasal Cannula Oxygen Flow Rate 1 Fraction of Inspired Oxygen ( 35 FIO2) Intake & Output 11/29/16 11/30/16 12/01/16 12/02/16 23:59 23:59 23:59 23:59 Intake Total 6121 542 8193 60 Output Total 1700 1350 3100 1550 Balance -102 -390 -9915 -2270 Patient's weight 85.275 kg 85.049 kg 85.139 kg 84.867 kg General: Alert, Oriented x3, Well appearing, Weakness HEENT: PERRLA, EOMI (Sclera white), Anicteric Sclera, Mucous membr. moist/pink Neck: Normal Trachea alignment, Normal inspection Lymphatics: Normal Respiratory: Diminished, Rales Cardiovascular: Regular rate, Normal S1, No Gallops,Rubs/Murmurs, Normal S2. negative: LE Edema GI: Normal bowel sounds, Soft, Non tender (non distended) Extremities/Musculoskeletal: Normal pulses, Other (Normal Tone). negative: Edema, Cyanosis Skin: Warm,Dry and Intact Neurological: Normal speech, Normal tone, Cranial Nerves (II-XII intact) Psych/Mental Status: Appropriate, Normal Affect, Cooperative Lab/DI/Studies Reviewed: Laboratory Tests 12/02/16 19:21 Sodium 137 Potassium 4.0 Chloride 88 L Carbon Dioxide 37 H Anion Gap 16 BUN 39 H Creatinine 1.30 H Estimated GFR (MDRD) 39 L Glucose 170 H Calculated Osmolality 277 Calcium 10.9 H - Assessment (1) Acute on chronic combined systolic and diastolic congestive heart failure Chronic I50.43 - ACUTE ON CHRONIC COMBINED SYSTOLIC AND DIASTOLIC HRT FAIL Comment/Plan: The patient has both acute and chronic heart failure. Heart failure type: Echocardiogram results from past: Echocardiogram 2012: EF 30-35%. Systolic and diastolic dysfunction. Current echo shows LVEF of 20-25%. Give Lasix IV scheduled. Replace potassium. Will need hospital bed at discharge in order to keep head elevated. Monitor heart rate, blood pressure, and respiratory status carefully. (2) Acute respiratory failure with hypercapnia Acute J96.02 - ACUTE RESPIRATORY FAILURE WITH HYPERCAPNIA Comment/Plan: Patient has been able to wean down to 2L NC. Monitor oxygen saturation levels and keep O2 sats greater than 92%. (3) Pulmonary edema cardiac cause Acute I50.1 - LEFT VENTRICULAR FAILURE Comment/Plan: Continue diuresis, LVEF =20-25% severely impaired. Patient is improved. (4) Hypertensive emergency Resolved I16.1 - HYPERTENSIVE EMERGENCY Comment/Plan: Currently on Coreg and lisinopril to control BP. BP =145/74 (5) Leukocytosis Resolved D72.829 - ELEVATED WHITE BLOOD CELL COUNT, UNSPECIFIED Comment/Plan : Resolved (6) Bacteremia due to Gram-positive bacteria Ruled-out A49.9 - BACTERIAL INFECTION, UNSPECIFIED Comment/Plan: Both aerobic and anaerobic bottles are + for GPC (in clusters) probable contaminant ( Staph species). Will stop vancomycin. - Plan Anticipate discharge in AM. Case Care Discussed with: Patient, Nursing Staff, Resource Management Education/Counseling Given To: Patient Education/Counseling Given Regarding: Diagnosis, Treatment, Prognosis Total Time: 25 min
[2016-12-02] MEDS: ENOXAPARIN 40 MG/0.4 ML PFS SQ SCH (17:50)
[2016-12-02 19:47] LABS: BLOOD UREA NITROGEN 39 MG/DL (7-17); CALCIUM 10.9 MG/DL (8.4-10.2); CALCULATED OSMOLALITY 277 MOs/Kg (270-290); CHLORIDE 88 mEq/L (98-107); GLUCOSE 170 MG/DL (70-99); SODIUM LEVEL 137 mEq/L (137-146)
[2016-12-02] MEDS: CYANOCOBALAMIN (Vitamin B-12) 500 MCG TABLET PO SCH (21:05)
[2016-12-02] MEDS: ATORVASTATIN 40 MG TAB PO SCH (21:05)
[2016-12-02] MEDS: LORAZEPAM 2 MG/ML VIAL IV PRN (21:19)
[2016-12-03 04:06] VITALS: BMI 31.3
[2016-12-03] MEDS: PANTOPRAZOLE 40 MG TAB PO SCH (05:22)
[2016-12-03] MEDS: FUROSEMIDE 40 MG/4 ML VIAL IV SCH ×2 (05:23→13:41)
[2016-12-03 05:36] LABS: BLOOD UREA NITROGEN 39 MG/DL (7-17); CALCIUM 11.8 MG/DL (8.4-10.2); CALCULATED OSMOLALITY 280 MOs/Kg (270-290); CHLORIDE 86 mEq/L (98-107); GLUCOSE 156 MG/DL (70-99); SODIUM LEVEL 139 mEq/L (137-146)
[2016-12-03] MEDS: CLOPIDOGREL 75 MG TAB PO SCH (08:15)
[2016-12-03] MEDS: LISINOPRIL 5 MG TAB PO SCH (08:15)
[2016-12-03] MEDS: CARVEDILOL 3.125 MG TAB PO SCH (08:15)
[2016-12-03] MEDS: Aspirin (Orange Enteric Coated) 325 mg tab PO SCH (08:15)
[2016-12-03] MEDS: OMEGA-3-ACID ETHYL ESTERS 1000 MG CAP PO SCH (08:16)
[2016-12-03] MEDS: CEFTRIAXONE 1 GM in D5W 100 ML IV SCH (08:16)
[2016-12-03] MEDS: Loratadine 10 MG TAB PO SCH (08:16)
[2016-12-03] MEDS: POTASSIUM CHLORIDE 20 MEQ TAB PO SCH ×3 (08:16→17:16)
[2016-12-03] MEDS: GABAPENTIN 300 MG CAP PO SCH (08:16)
--- NOTE | 2016-12-03 10:47 | PCM.DCS92 ---
- Final/Secondary Discharge Diagnosis (1) Acute on chronic combined systolic and diastolic congestive heart failure Chronic I50.43 - ACUTE ON CHRONIC COMBINED SYSTOLIC AND DIASTOLIC HRT FAIL Present on Admission: Yes Comment: The patient has both acute and chronic heart failure. Heart failure type: Echocardiogram results from past: Echocardiogram 2012: EF 30-35%. Systolic and diastolic dysfunction. Current echo shows LVEF of 20-25%. Give Lasix IV scheduled. Replace potassium. Will need hospital bed at discharge in order to keep head elevated, requires frequent position changes. Monitor heart rate, blood pressure, and respiratory status carefully. (2) Acute respiratory failure with hypercapnia Acute J96.02 - ACUTE RESPIRATORY FAILURE WITH HYPERCAPNIA Present on Admission: Yes Comment: Patient has been able to wean down to 2L NC. Monitor oxygen saturation levels and keep O2 sats greater than 92%. (3) Pulmonary edema cardiac cause Acute I50.1 - LEFT VENTRICULAR FAILURE Present on Admission: Yes Comment: Continue diuresis, LVEF=20-25% severely impaired. Requires hospital bed due to need for frequent repositioning and need to keep head elevated due to chronic risk of pulmonary edema. Patient is improved. (4) Hypertensive emergency Resolved I16.1 - HYPERTENSIVE EMERGENCY Present on Admission: Yes Comment: Currently on Coreg and lisinopril to control BP. BP =145/74 (5) Leukocytosis Resolved D72.829 - ELEVATED WHITE BLOOD CELL COUNT, UNSPECIFIED Present on Admission: Yes Comment: Resolved (6) Bacteremia due to Gram-positive bacteria Ruled-out A49.9 - BACTERIAL INFECTION, UNSPECIFIED Present on Admission: No Comment: Both aerobic and anaerobic bottles are + for GPC (in clusters) probable contaminant (Staph species). Will stop vancomycin. Discharge Disposition: Discharge w/ Home Health Discharge Condition: Improved Cognitive Discharge Status: Cognitive deficits prevent decision making for safety. Fuctional Discharge Status: Walker Assistance, Fall Risk, Inability to drive due to severe medical illness, Ambulatory Dysfunction, Unable to leave home without assistance Physician Follow up/Referrals: Angela Ames DO [Ambulatory] - 12/10/16 2:15 pm New Prescriptions: Cefuroxime Axetil [Ceftin] 500 mg PO BID #10 tablet Lisinopril [Zestril] 5 mg PO DAILY #30 tablet Nitroglycerin Sublingual Tab [NTG (NitroStat Sublingual Tab)] 0.4 mg SL PRN PRN #30 tablet PRN Reason: Chest Pain Or Discomfort POTASSIUM CHLORIDE Tablet [K-DUR 20 mEq Tablet*] 20 meq PO BID #60 tab.er.prt Discharge Home Medication List Atorvastatin Calcium 40 mg PO HS 11/29/16 [History Confirmed 11/29/16 Last Taken 11/28/16] Calcium Carbonate/Vitamin D3 [Calcium + Vit D Tablet (600mg/200IU)] 1 tab PO BID 11/29/16 [History Confirmed 11/29/16 Last Taken 11/28/16] Carvedilol 3.125 mg PO BID 11/29/16 [History Confirmed 11/29/16 Last Taken 11/28] Citalopram (anti-depressant) [Celexa] 40 mg PO DAILY 11/29/16 [History Confirmed 11/29/16 Last Taken 11/28/16] Clopidogrel Bisulfate [Plavix] 75 mg PO DAILY 11/29/16 [History Confirmed Last Taken 11/28/16] Cyanocobalamin (Vitamin B-12) [Vitamin B-12 (cyanocobalamin)] 500 mcg PO HS [History Confirmed 11/29/16 Last Taken 11/28/16] Folic Acid 1 mg PO DAILY 11/29/16 [History Confirmed 11/29/16 Last Taken ] Furosemide 60 mg PO TID 11/29/16 [History Confirmed 11/29/16 Last Taken 11/28/16 ] Gabapentin 300 mg PO QAM 11/29/16 [History Confirmed 11/29/16 Last Taken ] Gabapentin 600 mg PO QHS 11/29/16 [History Confirmed 11/29/16 Last Taken ] Loratadine [Alavert] 10 mg PO DAILY 11/29/16 [History Confirmed 11/29/16 Last Taken 11/28/16] Multivitamin [Multivitamins] 1 each PO DAILY 11/29/16 [History Confirmed Last Taken 11/28/16] Mv-Mn/FA/Vit K/Lycop/Lut/Zeaxa [Ocuvite Eye + Multi Tablet] 1 each PO BID [History Confirmed 11/29/16 Last Taken 11/28/16] Barnwell-3 Fatty Acids/Fish Oil [Fish Oil 1,000 mg Capsule] 1 each PO BID 11/29/16 [History Confirmed 11/29/16 Last Taken 11/28/16] Pantoprazole Sodium 40 mg PO DAILY 11/29/16 [History Confirmed 11/29/16 Last Taken 11/28/16] Ubidecarenone [Co Q-10] 200 mg PO BID 11/29/16 [History Confirmed 11/29/16 Last Taken 11/28/16] Aspirin (OrangeEnteric Coated) [Ecotrin] 325 mg PO DAILYWM #30 tablet 12/03/16 [ Rx Last Taken Unknown] Cefuroxime Axetil [Ceftin] 500 mg PO BID #10 tablet 12/03/16 [Rx Last Taken Unknown] Lisinopril [Zestril] 5 mg PO DAILY #30 tablet 12/03/16 [Rx Last Taken Unknown] Nitroglycerin Sublingual Tab [NTG (NitroStat Sublingual Tab)] 0.4 mg SL PRN PRN #30 tablet 12/03/16 [Rx Last Taken Unknown] POTASSIUM CHLORIDE Tablet [K-DUR 20 mEq Tablet*] 20 meq PO BID #60 tab.er.prt [Rx Last Taken Unknown] O2 Device: Nasal Cannula Oxygen Flow Rate: 2 Oxygen to be used after Discharge: Continuous Additional Instructions: Problem: Abnormal Blood Pressure Goal: Blood Pressure Controlled Instructions: Follow Discharge Instructions. Call your physician if condition worsens. Diet at Discharge: Cardiac Call Office For: Worsening Symptoms, Fever over 101 F, Pain Uncontrolled By Meds Discontinue use of:: Alcohol, All Types of Tobacco - DC Summary Notes Hospital Course Note:: Discharge summary on patient named NIKITA RICHARDS admitted to [facility] on 11/29/16 by Nicanor Whitaker MD. Date of discharge is [12/04/16]. NIKITA RICHARDS is an 86 year old woman who has a history of congestive heart failure and presented to the ED with acute onset of shortness of breath and increased cough and chest congestion. The patient has both acute and chronic heart failure. Echocardiogram results from past: 2011: EF 30-35%. Systolic and diastolic dysfunction. Current echo shows LVEF of 20-25%. She was admitted, treated with aggressive diuresis, given Lasix IV scheduled, monitored her potassium, and electrolytes as well as her renal function. Her blood pressure was very high when she came in, and she required IV nitroglycerin for control of this. Currently she has been weaned off the nitro drip and is on Coreg and lisinopril to control BP. BP =145/74. She is doing much better and will be discharged home with home health follow-up. She will need hospital bed at discharge in order to keep head elevated, requires frequent position changes. She will follow-up with Dr. Ames in 1 week. Code: 74766 (>30min.) - Physical Exam Vital Signs: Last Vital Signs Temp 97.7 F 12/03/16 08:00 Pulse 85 12/03/16 09:40 Resp 18 12/03/16 08:00 BP 133/65 12/03/16 08:00 Pulse Ox 93 12/03/16 09:40 Oxygen Pulse Oxygen Saturation 93 O2 Device Nasal Cannula Oxygen Flow Rate 1 Fraction of Inspired Oxygen ( 35 FIO2) Constitutional: Alert, Restless. negative: Well nourished, Well appearing Oriented to: Person - HEENT Head: Normal Eye: Normal (PER), Other (vision impaired) Oropharynx: Normal. negative: Exudate, Membranes Dry Tympanic Membrane: Dull ENT EAC: Normal Nose: No Symptoms Reported - Respiratory/Cardiovascular Respiratory: Normal - CTA, Diminished Cardiovascular: Normal - GI Auscultation: Normal Palpation: Normal Tenderness: Non tender Rectal Exam: Deferred - Musculoskeletal Back: Normal. negative: CVA Tenderness Extremities: Normal. negative: Pedal Edema - Integumentary Skin: Warm, Dry Lymphatics: Normal - Neurologic Memory Impaired: Short-term, Long-term Motor Function: Normal Cranial Nerve: Normal Cerebellar: Normal Mood Description: Anxious Thought: Rambling Conversation Perception: Normal
[2016-12-03] MEDS: CALCIUM CARBONATE + VITAMIN D 500 MG TAB PO SCH ×2 (13:42→17:16)
[2016-12-03] MEDS: FOLIC ACID 1 MG TAB PO SCH (13:42)
[2016-12-03] MEDS: VITAMINS, MULTIPLE CAP PO SCH ×2 (13:42→17:16)
[2016-12-03 15:18] VITALS: BP 129/60; PULSE 83; TEMP 98
== END 2016-12-03 18:20 | disposition home health service (06) | DRG 291 ==
LOC: ED 03:48 → ICU 05:48 → PCU 11-30 21:22
PROVIDERS: ADMIT Internal Medicine; ATTEND Family Medicine
PROC: 5A09457 Assistance with Respiratory Ventilation, 24-96 Consecutive Hours, Continuous Positive Airway Pressure (ICD-10-PCS; principal; 2016-11-29)
PROC: 03973ZZ Drainage of Right Brachial Artery, Percutaneous Approach (ICD-10-PCS; 2016-11-29)
DX: I11.0 Hypertensive heart disease with heart failure (principal); J96.02 Acute respiratory failure with hypercapnia; I63.9 Cerebral infarction, unspecified; I16.1 Hypertensive emergency; I50.43 Acute on chronic combined systolic (congestive) and diastolic (congestive) heart failure; D72.829 Elevated white blood cell count, unspecified; E78.00 Pure hypercholesterolemia, unspecified; E11.40 Type 2 diabetes mellitus with diabetic neuropathy, unspecified; Z79.899 Other long term (current) drug therapy; Z95.0 Presence of cardiac pacemaker
CPT/HCPCS: 36415; 36600; 71010; 80048; 80053; 80061; 81001; 82550; 82803; 83605; 83735; 83880; 84132; 84484; 85025; 85027; 85610; 85730; 87040; 87086; 87641; 87804; 93005; 93306; 94660; 96372; 96375; 99285; J0456; J0696; J1650; J1940; J2060; J3370; J3475; J3490; J7060; J7070